=== PATIENT | female | born 1980 | race Caucasian/White ===

== ENCOUNTER 2023-01-11 10:57 | Outpatient (CLI) | payer OTHER, SELFPAY ==
[2023-01-11 22:53] LABS: HIV 1/2/P24 Combo Screen* Negative (Negative)
[2023-01-11 23:40] LABS: Chlamydia DNA Amplified* NOT DETECTED (No Detected); GC DNA Amplified* NOT DETECTED (No Detected)
[2023-01-13 12:57] LABS: Rapid Plasma Reagin (RPR) Non Reactive (Non Reactive)
== END 2023-01-11 10:58 | disposition home or self-care (01) ==
PROVIDERS: PCP Family Medicine; Visit Provider Family Medicine
DX: Z00.00 Encounter for general adult medical examination without abnormal findings (principal); R53.83 Other fatigue; N91.2 Amenorrhea, unspecified; Z13.6 Encounter for screening for cardiovascular disorders; Z11.59 Encounter for screening for other viral diseases; Z79.899 Other long term (current) drug therapy; Z11.3 Encounter for screening for infections with a predominantly sexual mode of transmission
CPT/HCPCS: 80053; 80061; 82306; 82607; 83001; 83002; 84146; 84443; 86592; 86703; 86803; 87491; 87591

== ENCOUNTER 2023-04-30 18:04 | Outpatient (CLI) | payer OTHER, SELFPAY ==
--- OUTSIDE RECORDS SUMMARY | 2023-04-30 18:07 | XMS_ITS | Clinical Summary ---
Author Name Unknown Organization [facility] Address [place], [place] [address] Care Team Providers Care Product Applications Scientist Name Role Phone Yvonne Vidal Primary Care Provider Jina Brown MD Unavailable [phone] Allergies Active Allergy Reactions Criticality Noted Date Comments Latex Rash 09/03/2016 Penicillins *Unknown - Pt Doesn't Remember 10/20 Medications Medication Sig Dispensed Refills Start Date End Date Status SUBOXONE 12-3 mg sublingual film Apply 12-3 mg film everyday 1 08/05/2017 Active sertraline (ZOLOFT) 100 mg tablet 2 09/01/2018 Active valACYclovir (VALTREX) 500 mg tabletIndications:Re current cold sores TAKE ONE TABLET BY MOUTH BY MOUTH TWICE DAILY 180 tablet 3 10/08/2018 Active valACYclovir (VALTREX) 1 gram tabletIndications:Re current cold sores TAKE 2 TABLETS BY MOUTH TWICE DAILY FOR 1 DAY AT SYMPTOM ONSET 12 tablet 0 01/26/2019 Active Active Problems Problem Noted Date Diagnosed Date 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; History of drug abuse 04/19/2014 Immunizations Name Administration Dates Next Due Human Papilloma Virus Vaccine 08/05/2009, 009,02/04/2009,02/18/2007 Influenza, IIV3 (Age >=3 years) 01/15/2012 Td (Age >=7 Years) 07/19/2003 Tdap 05/13/2012,07/19/2011,11/13/2006 Family History Medical History Relation Name Comments Unknown Father Diabetes Maternal Grandfather Gout Maternal Grandfather Lung cancer Maternal Grandfather Thyroid Disease Maternal Grandmother Depression Mother Hypertension Mother Diabetes Other Cousin Relation Name Status Comments Father Maternal Grandfather Maternal Grandmother Alive Mother Alive Other Cousin Social History Tobacco Use Types Packs/Day Years Used Date Smoking Tobacco: Former Cigarettes 0.5 10 2 004 - 2013 Smokeless Tobacco: Never Comments:quit May 2013 Alcohol Use Standard Drinks/Week Comments Yes 1 (1 standard drink = 0.6 oz pur e alcohol) rare PHQ-2 Answer Date Recorded PHQ-2 Score 0 10/08/2018 Sex and Gender Information Value Date Recorded Sex Assigned at Not on file Gender Identity Not on file Sexual Orientation Not on file Obstetrics History Para Term AB IAB SAB Ectopic Multiple Livin g Live Births 4 2 2 1 1 2 Date Outcome GA Total Labor Labor/2nd/3rd Weight Sex Delivery Anes PTL Francine A1 A5 Name Cl in Para SAB Para IAB Last Filed Vital Signs Vital Sign Reading Time Taken Comments Blood Pressure 114/68 10/08/2018 1:41 PM CDT Pulse 70 10/08/2018 1:41 PM CDT Temperature 37.4 ??C (99.4 ??F) 11/05/2006 1 1:51 PM CDT Respiratory Rate 10 11/06/2006 2:45 PM CDT Oxygen Saturation 97% 11/05/2006 11: 51 PM CDT Inhaled Oxygen Concentration - - Weight 53.9 kg (118 lb 12.8 oz) 10/08/2018 1:41 PM CDT Height 160 cm (5' 3) 10/08/2018 1:41 PM CDT Body Mass Index 21.04 10/08/2018 1:41 PM CDT Plan of Treatment Health Maintenance Due Date Last Done Comments COVID-19 vaccine series (#1) 04/01/1983 HIV for age 15-65 1997 Hepatitis C screening for age 18-79 2000 Pap test for age 21-65 09/04/2019 7, 04/19/2014, 07/19/2011, Additional history exists BMI (ht and wt on same day) for age 18+ 10/09/2019 10/08/2018, 08/30/2017, 09/03/2016, Additional history exists Depression screening for age 12+ 10/10/2019 10/09/2018, 10/08/2018, 08/30/2017, Additional history exists Tetanus booster 05/13/2022 05/13/2012, 06/21, 11/13/2006, Additional history exists Influenza for age 9-49 12/21/2022 01/15/2012 Tdap Completed 05/13/2012, 06/21, 11/13/2006 Pneumococcal series for age 6-64 Aged Out No longer eligible based on patient's age to complete this topic Care Teams Product Applications Scientist Relationship Specialty Start Date End Date Yvonne Vidal PA PCP - General Family Practice 04/19/14 Jina Brown MD Mental Health Associate Internal Medicine 04/19/14
--- OUTSIDE RECORDS SUMMARY | 2023-04-30 18:08 | XMS_ITS | Patient Health Record ---
Author Name Unknown Organization [facility] Address [address] [place] [address] [address] [place] [address] Care Team Providers Care Spike Maker Name Role Phone Di Brody MD Primary Care Provider Unav ailnuzhat FigueroaeMak Unavailable [phone] Jose Anderson Unavailable [phone] ALLERGIES Allergen (clinical drug ingredient) Drug/Non Drug Allergy documented on EMR Reaction Allergy Type Onset Date Status Latex Latex Unknown Allergy Active Penicillin rash Drug Allergy Active RESULTS Component Value Reference Range Notes MRI : Thoracic Spine Reviewed date:04/01/2023 10:29:14 AM Interpretation: Performing Lab: Notes/Report: MRI : Lumbar Reviewed date:04/01/2023 10:16:25 AM Interpretation: Performing Lab: Notes/Report: MRI : Cervical Spines Reviewed date:04/01/2023 10:15:45 AM Interpretation: Performing Lab: Notes/Report: REASON FOR REFERRAL Reason REHAB *PHYSICIAN WILIAN WASSERMAN PMR/OCC MED Please refer the patient to address her chronic neck and mid-low back pain. Please call the patient to schedule [phone]. Diagnosis 1 Cervicalgia (M54.2) Diagnosis 2 Pain in thoracic spi ne (M54.6) Diagnosis 3 Low back pain, unspe cified (M54.50) Referral Organization [facility] Referring Provider First Name Jose Referring Provider Last Name Monica Referring Provider Speciality Nurse Gilberto titlizzette Referred Provider Rohit Pham Referred Provider Specialty Rehabilitati on General Notes Kameron Werner 03/23 09:42:02 AM >Pref1, no PA required. Ok to schedule until 04/21/23, Nany Gonzalez 04/10/2023 10:48:08 AM >Sent TE to Referral 1. Referral Priority Routine MEDICATIONS Medication SIG (Take, Route, Frequency, Duration) Notes Start Date End Date Status tiZANidine HCl 4 MG 1 tablet as needed Orally Once a day for 30 days Active DULoxetine HCl 30 MG 1 capsule Orally Twice a day Active cloNIDine HCl 0.2 MG 1 tablet Orally Three times a day Active Buprenorphine HCl-Naloxone HCl 2-0.5 MG 0.5 film under the tongue and allow to dissolve Sublingual Once a day PT reports taking 05/07 film every other day Active SOCIAL HISTORY Sex Assigned At : Social History Observation Description Sex Assigned At Unknown PROBLEMS Problem Type ICD Code Onset Dates Problem Status W/U Status Risk SNOMED Code Notes Problem Other chronic pain (G89.29) Active confirmed Chronic pain (39987710) VITAL SIGNS Blood pressure diastolic 78 mm Hg 04/09/2023 Height 63 in 04/09/2023 Blood pressure systolic 128 mm Hg 04/09/2023 Weight 131.5 lbs 04/09/2023 BMI 23.29 kg/m2 04/09/2023 Encounters Encounter Location Date Provider Diagnosis [facility] [address] [facility] [address] [place] [address] 01/11/2023 Mak Mcghee [facility] [address] [facility] [address] [place] [address] 04/10/2023 Mak Mcghee 104 [facility] [address] [place] [address] 03/19/2023 Mak Mcghee Other chronic pain G89.29 ; Low back pain, unspecified M54.50 ; Pain in thoracic spine M54.6 and Cervicalgia M54.2 [address] [facility] [address] [place] [address] 04/09/2023 Jose Anderson Other chronic pain G89.29 ; Low back pain, unspecified M54.50 ; Pain in thoracic spine M54.6 ; Cervicalgia M54.2 and Cannabis use, unspecified, uncomplicated F12.90 ASSESSMENTS Encounter Date Diagnosis Assessment Notes Treatment Notes Treatment Clinical Notes 04/09/2023 Other chronic pain (ICD-10 - G89.29) Milady presents to the clinic for an evaluation regarding her chronic headaches, neck pain, and upper, mid, and low back pain. I have reviewed her symptoms and current medications. I reviewed her cervical, thoracic, and lumbar MRIs with Milady and discussed the findings with her. I will her to [facility] to strength and condition her neck, upper, mid, and low back. I checked the [place] [employer] SU[employer] MANAGER database and I did not find any inconsistencies. Milady inquires about medical cannabis certifications today. I discussed how she would be certified through the [facility]. I informed her on the risks and benefits of medical cannabis and how she would work with a dispensary to find the best products for her symptoms. She expressed understanding and wanted to proceed. Therefore, I have certified her for medical cannabis through the [facility] today, and she consented to an updated UDS for certification purposes. I will consider injection therapy and a MBB/RFA workup in the future if her painful symptoms persist. I increased her Tizanidine to 4MG QD since she has been taking 2MG #2 QD and notes adequate pain relief. This treatment plan was reviewed with the patient, and she was agreeable. She will return for further evaluation as needed. I will continue to monitor her progress, adjusting her treatment plan as necessary. Milady continues to wean down her suboxone, using 1/16 of a film every other day. If she needs, we can assume her suboxone prescription- she declines at this time. Plan: 1. Reviewed cervical, thoracic, and lumbar MRIs 2. Refer to [facility] 3. Certify for medical cannabis 4. Consider injection therapy 5. Consider MBB/RFA Workup 6. Increase Tizanidine to 4MG QD 7. Continue weaning suboxone 8. Follow up as needed Discharge instructions reviewed verbally. Discussed the risks/benefits of prescribed medication. The patient was instructed to return to the office as scheduled and call with any questions, problems or concerns. Cervical MRI ([facility])Exam Date: 03/30/2023ONCLUSI ON:1. Moderate C4-5 disc degeneration with bulge, dural sac effacement and mild leftforaminal stenosis.2. C5-6 annular bulge with no stenosis or neural impingement.3. Flattening cervical lordotic curve with no acute osseous lesion or fracture. Thoracic MRI ([facility])Exam Date: 03/30/2023ONCLUSI ON:Normal MRI study of the thoracic spine. Lumbar MRI ([facility])Exam Date: 3CONCLUSI ON:1. L5-S1 right dorsal annular fissure/bulge with right S1 nerve contact.2. Normal disc morphology remaining lumbar levels.3. No acute osseous lesion or fracture. 04/09/2023 Low back pain, unspecified (ICD-10 - M54.50) 03/19/2023 Other chronic pain (ICD-10 - G89.29) Milady presents to the clinic for an evaluation regarding her chronic headaches, neck pain, and upper, mid, and low back pain. I have reviewed her symptoms and current medications. I will order cervical thoracic and lumbar MRIs to [facility] in [place] to obtain updated imaging of her painful areas. I will consider [facility] to strength and condition her neck, upper, mid, and low back. I checked the [facility] database and I did not find any inconsistencies. Therefore, I started her on Meloxicam 15MG QD and Tizanidine 2MG QD in an attempt to reduce her painful symptoms. I regards to [place], Milady states she has enough medication at this time and will consider establishing care if she continues to need [place]. I will consider certifying Milady for medical cannabis in the future and she seemed interested in this. I provided her with an informational packet today so that she could learn more about her options. This treatment plan was reviewed with the patient, and she was agreeable. She will return in three weeks for further evaluation or sooner if needed. I will continue to monitor her progress, adjusting her treatment plan as necessary. Plan: 1. Order cervical, thoracic, and lumbar MRIs to [facility] in [place] 2. Consider injection therapy 3. Consider MBB/RFA Workup 4. Consider [facility] 5. Consider medical cannabis 6. Start Tizanidine 2MG QD 7. Start Meloxicam 15MG QD 8. Follow up in 3 weeks Discharge instructions reviewed verbally. Discussed the risks/benefits of prescribed medication.The patient is aware that medication may be discontinued at any time due to poor compliance with visits,and recommended treatment and/or if patient does adhere to the signed pain contract. The patient was instructed to return to the office as scheduled and call with any questions, problems or concerns. 03/19/2023 Low back pain, unspecified (ICD-10 - M54.50) 03/19/2023 Pain in thoracic spine (ICD-10 - M54.6) 04/09/2023 Pain in thoracic spine (ICD-10 - M54.6) 04/09/2023 Cervicalgia (ICD-10 - M54.2) 03/19/2023 Cervicalgia (ICD-10 - M54.2) 04/09/2023 Cannabis use, unspecified, uncomplicated (ICD-10 - F12.90) 04/09/2023 Other Miranda Cortes, am serving as a scribe to document services personally performed by Jose Anderson NP, based upon my observations and the provider's statements to me. All documentation has been reviewed by the aforementioned BRICKLAYER SUPERVISOR as well as Mak Mcghee MD, prior to being entered into the official medical record. Mak Cortes MD attest that the above named individual is acting in scribe capacity, has observed Jose Anderson's performance of the services and has documented them in accordance with his direction. The documentation recorded by the scribe accurately reflects the service Jose Anderson NP, and Mak Mcghee MD, personally performed and the decisions made by them. 03/19/2023 Other Miranda Cortes, am serving as a scribe to document services personally performed by Jose Anderson NP, based upon my observations and the provider's statements to me. All documentation has been reviewed by the aforementioned BRICKLAYER SUPERVISOR as well as Mak Mcghee MD, prior to being entered into the official medical record. Mak Cortes MD attest that the above named individual is acting in scribe capacity, has observed Jose Anderson's performance of the services and has documented them in accordance with his direction. The documentation recorded by the scribe accurately reflects the service Jose Anderson NP, and Mak Mcghee MD, personally performed and the decisions made by them. PLAN OF TREATMENT Pending Test Test Name Order Date Urine toxicology 04/09/2023 Insurance Providers Payer Name Payer Address Payer Phone Subscriber Number Group Number Insured Name Patient Relationship to Insured Coverage Start Date Coverage End Date [employer] (PAS) [address] [place] [address] [id number] Milady Perez Self - patient is the insured MEDICAL (GENERAL) HISTORY Medical History History ICD Code Anxiety Depression Headaches Surgical History Surgery Date(Month/Year) Right shoulder sugery 2004 Hospitalization History Reason Date(Month/Year) Surgical
--- NOTE | 2023-04-30 18:40 | CRLHL7_ITS ---
For Patients: As a result of the Cures Act, medical imaging exams and procedure reports are released immediately into your electronic medical record. You may view this report before your referring provider. If you have questions, please contact your health care provider. BILATERAL SCREENING MAMMOGRAM WITH COMPUTER-AIDED DETECTION AND TOMOSYNTHESIS TECHNIQUE: CC and MLO views were obtained. These mammographic images have been obtained using full-field digital technique. These mammographic images were interpreted with the benefit of computer-aided detection. Breast Tomosynthesis was used in this interpretation. COMPARISON FILM: Baseline. FINDINGS: There are scattered areas of fibroglandular density IMPRESSION: There is no radiographic evidence for malignancy. ASSESSMENT: BI-RADS Category 1: Negative RECOMMENDATION: Routine screening mammogram in 1 year. A lay language report of this examination will be provided to the patient. CHRISTOPHER LAW M.D. Diagnostic/Nuclear Medicine Radiologist [email or web address] DONNA:delicia Transcribed: 3:36 p.mSarah nesbitt/Dictated by: Christopher Law MD @ 05/02/2023 8:49:00 AM (Electronically Signed)
== END 2023-04-30 18:05 | disposition home or self-care (01) ==
PROVIDERS: PCP Family Medicine; Visit Provider Family Medicine
DX: Z12.31 Encounter for screening mammogram for malignant neoplasm of breast (principal)
CPT/HCPCS: 77063; 77067

== ENCOUNTER 2024-03-20 13:49 | Outpatient (CLI) | payer OTHER, SELFPAY ==
--- OUTSIDE RECORDS SUMMARY | 2024-03-20 13:55 | XMS_ITS | Clinical Summary ---
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 Overview (04/19/2014): On Valtrex; History of drug abuse 04/19/2014 [...] Smoking Tobacco: Former Cigarettes 0.5 10 2 - 2013 Smokeless Tobacco: Never Comments:quit May [...] Outcome GA Total Labor Labor/2nd/3rd Weight Sex Type Anes PTL Francine A1 A5 Name Clin Para SAB Para IAB Last Filed Vital Signs Vital Sign Reading Time Taken Comments Blood Pressure 114/68 10/08/2018 1:41 PM CDT Pulse 70 10/08/2018 1:41 PM CDT Temperature 37.4 C (99.4 F) 11/05/2006 11:51 PM CDT Respiratory Rate 10 11/06/2006 2:45 PM CDT Oxygen Saturation 97% 11/05/2006 11: 51 PM CDT Inhaled Oxygen Concentration - - Weight 53.9 kg (118 lb 12.8 oz) 10/08/2018 1:41 PM CDT Height 160 cm (5' 3) 10/08/2018 1:41 PM CDT Body Mass Index 21.04 10/08/2018 1:41 PM CDT Plan of Treatment Health Maintenance Due Date Last Done Comments HIV for age 15-65 1997 Hepatitis C screening for age 18-79 2000 Pap test for age 21-65 09/04/2019 7, 04/19/2014, 07/19/2011, Additional history exists BMI (ht and wt on same day) for age 18+ 10/09/2019 10/08/2018, 08/30/2017, 09/03/2016, Additional history exists Depression screening for age 12+ 10/10/2019 10/09/2018, 10/08/2018, 08/30/2017, Additional history exists Tetanus booster 05/13/2022 05/13/2012, 06/21, 11/13/2006, Additional history exists COVID-19 vaccine series (2023- season) 2023 Influenza for age 9-49 12/22/2023 01/15/2012 Tdap Completed 05/13/2012, 06/21, 11/13/2006 Pneumococcal series for age 6-64 Aged Out No longer eligible based on patient's age to complete this topic Procedures Procedure Name Priority Date/Time Associated Diagnosis Comments STRADDLE BUG DRIVER THIN PREP PAP SCREEN IMAGED Routine 09/03/2016 8:44 AM CDT Pap smear for cervical cancer screening from Last 3 Months or Most Recently Relevant to Health Maintenance Results * STRADDLE BUG DRIVER THIN PREP PAP SCREEN IMAGED (09/03/2016 8:44 AM CDT) Case Report Gynecologic Cytology Report Case: [id number] Authorizing Provider: Yvonne Vidal, Collected: 09/03/2016 0844 SC Ordering Location: [facility] Received: 09/03/2016 0844 Clinic First Screen: Pieter Mann Specimen: STRADDLE BUG DRIVER ThinPrep Vial Screening, Cervical 09/09/2016 2:28 PM CDT [facility] INTERPRETATION/ RESULT NEGATIVE FOR INTRAEPITHELIAL LESION OR MALIGNANCY (NIL) (none) 09/09/2016 2:28 PM CDT [facility] Plan B AcqusitionsC ENTRAL LABORATORY IMEN ADEQUACY Satisfactory for evaluation Endocervical component present 09/09/2016 2:28 PM CDT [facility] HPV REQUEST HPV if ASCUS 09/09/2016 2:28 PM CDT [facility] ENTRAL LABORATORY Date of LMP 08/28/16 09/09/2016 2:28 PM CDT [facility] Last Pap Date 04/19/14 09/09/2016 2:28 PM CDT [facility] Last Pap Result NIL 7 2:28 PM CDT [facility] Abnormal Pap or [place] Bx in last 5 years No 09/09/2016 2:28 PM CDT [facility]- ENTRAL LABORATORY Menstrual Status Regular Periods 09/09/2016 2:28 PM CDT [facility] ENTRFL LABORATORY [place] Bx Done Today No 09/09/2016 2:28 PM CDT [facility] ENTRAL LAB[facility] Additional Information None given 09/09/2016 2:28 PM CDT [facility] ENTRAL LABORATORY Automated Review Successful 09/09/2016 2:28 PM CDT [facility] ENTRAL LABORATORY Comment:Specimen processed s uccessfully by automated line locator device, ThinPrep Imaging System, [employer] Note The pap test is a screening technique, not a diagnostic procedure. It is used primarily to screen for squamous cancers and precursor lesions. Published studies have shown that it is subject to both false negative and false positive results. The pap test should not be used as the sole means to diagnose or exclude pre-malignant and malignant lesions. Interpreted at [facility] (Central Lab, [facility], [facility], [facility], [facility], [facility] [place], [facility]) 09/09/2016 2:[address] [facility] Other (Cervical) 09/03/2016 8:44 AM CDT 09/03/2016 8:44 AM CDT Yvonne MEYER PATHOLOGY/CYTO LOGY [facility]AL LABORATORY [address] [place] [address], from Last 3 Months or Most Recently Relevant to Health Maintenance Care Teams Water Attendant Relationship Specialty Start Date End Date Yvonne Vidal PA PCP - General Family Practice 04/19/14 Jina Brown MD Mental Health Associate Internal Medicine 04/19/14
== END 2024-03-20 13:50 | disposition home or self-care (01) ==
PROVIDERS: PCP Family Medicine; Visit Provider Family Medicine
DX: R53.83 Other fatigue (principal); F33.0 Major depressive disorder, recurrent, mild; Z13.6 Encounter for screening for cardiovascular disorders; Z13.1 Encounter for screening for diabetes mellitus
CPT/HCPCS: 80053; 80061